=== PATIENT | male | born 2005 | race Caucasian/White ===

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

== ENCOUNTER 2025-03-11 19:46 | Emergency (ER) | payer MEDICAID, SELFPAY ==
--- OUTSIDE RECORDS SUMMARY | 2011-08-24 05:00 | XMS_ITS | Continuity of Care Document ---
Author Organization [facility] Address [address] [address] [place] [address] Phone Care Team Providers Care Liquor Tester Name Role Phone Hanane MONTALVO, Susan Unavailable [...] - Active Procedures Procedure Date Offic/outpt E&m [facility] G8447 Advance Directives Directive Yes / [...] [place] [facility], [address] [address], [place], [id number], [place] tel:[phone] Pediatric Clinic Assess nutrition (chief complaint) Failure To Thrive PediatricsFeeding Problem 1 Hanane hebert [address] [facility], [facility] [address], [place], [place], [id number] , [place]. tel: [phone] Referring Provider: Referral Self, USE FOR SELF [...] Crohn's Payers Payer name Insurance type Covered republican ID Darby olvera(s) [place] Medical Assistance [id number] Social History Type Description Quantity Date Captured [...]
--- OUTSIDE RECORDS SUMMARY | 2011-08-24 05:00 | XMS_ITS | Continuity of Care Document ---
Author Organization [facility] Address [address] [address] [place] [address] Phone Care Team Providers Care Communications Scientist Name Role Phone Hanane MONTALVO, Susan Unavailable [...] - Active Procedures Procedure Date Offic/outpt E&m [facility] G8447 Advance Directives Directive Yes / [...] [place] [facility], [address] [address], [place], [id number], [place] tel:[phone] Pediatric Clinic Assess nutrition (chief complaint) Failure To Thrive PediatricsFeeding Problem 1 Hanane hebert [address] [facility], [facility] [address], [place], [place], [id number] , [place]. tel: [phone] Referring Provider: Referral Self, USE FOR SELF [...] republican ID Darby olvera(s) [place] Medical [place] [id number] Social History Type Description Quantity Date Captured [...]
--- OUTSIDE RECORDS SUMMARY | 2025-03-11 19:48 | XMS_ITS | Encounter Summary ---
Author Organization [place] Address [address] [facility] [place] [address] Care Team Providers Care Wound Nurse Name Role Phone Merle Temple MD Primary Care Provider Unavailable Hannah Lares MD Unavailable Ashley Morocho MD Unavailable Alok Duenas MD Unavailable Leonel Ceja MD Unavailable [phone] Kingsley Gay MD Unavailable Charly Cruz MD Unavailable [phone] Syed Ireland MD Unavailable Merle Temple MD Unavailable Unava ilable Merle Temple MD Unavailable Unava ilable Black Rucker APRN FAMILY ADVOCATE Unavailable Yariel Lagos MD Unavailable Alice Green MD Primary Care Provider [phone] Merle Temple MD Unavailable Unava ilable [facility] Unavailabl e Reason for Visit * Reason Onset Date Comments Refill Request 08/13/2014 levETIRAcetam (K EPPRA) 100 MG/ML solution Encounter Details Date Type Department Care Team (Late st Contact Info) Description 08/08/2014 Refill [facility] [address] [place] [address] Merle Temple MD Refill Request (levETIRAcetam (KEPPRA) 100 MG/ML solution) Social History Tobacco Use Types Packs/Day Years Used Date Smoking Tobacco: Passive Smo ke Exposure - Never Smoker Smokeless Tobacco: Never Comments:In the vehicle Sex and Gender Information Value Date Recorded Sex Assigned at Not on file Legal Sex Male 4:40 AM STRAIGHT LINE PRESS SETTER Gender Identity Not on file Sexual Orientation Not on file documented as of this encounter Miscellaneous Notes * Telephone Encounter - Jaleesa Cam RN - 08/14/2014 1:47 PM CST Does not meet standard requirement for RN refill protocol. Refill request is for keppra Last OV:04/17/14 for preop Please refill if appropriate. Thanks! 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 Patient did not develop symptoms within 10 day infection window, is not considered mild or severe immunocompromised. Meets isolation discontinuation criteria as of 10/21/20. 10/11/2020 10/11/2020 10/29/2020 10:42 AM STRAIGHT LINE PRESS SETTER Recovered COVID Comment:Asymptomatic positive 10/11/20. Utilizing 75 day recovery window (vs 90) since exact onset is unknown. 10/11/2020 10/29/2020 12/24/2020 11:39 PM CDT documented as of this encounter Care Teams Wound Nurse Relationship Specialty Start Date End Date Merle Temple MD PCP - General Pediatrics 09/09/12 11/26/22 Merle Temple MD PCP - Assigned PCP 08/12/12 12/06/18 Alice Green MD [facility] [address] [place] [address] PCP - General Family Medicine 11/27/22 Hannah Lares MD [address] [address] Orthopedics 11/23/13 Ashley Morocho MD [address] [address] Physical Medicine & Rehabilitation, Pediatric 11/23/13 Alok Duenas MD [address] [address] Specialty Provider Neurological Surgery 11/23/13 Leonel Ceja MD [address] [address] Specialty Provider Neurology 11/23/13 Kingsley Gay MD [facility] [address] [facility] [place] [address] Specialty Provider Ophthalmology 11/23/13 Charly Cruz MD [address] [address] Consulting Physician Pediatrics 11/23/13 Syed Ireland MD [address] [address] Specialty Provider Pediatric Surgery 11/23/13 Merle Temple MD Assigned PCP 08/12/12 09/18/22 Black Rucker APRN FAMILY ADVOCATE [address] [place] [address] [address] [place] [address] Assigned Pediatric Specialist Provider 07/26/20 08/17/20 Yariel Lagos MD [address] [facility] [address] [place] [address] Assigned Pediatric Specialist Provider 08/18/20 05/15/22 Merle Temple MD Assigned PCP 11/28/22 10/27/23 [facility] [address] [place] [address] Assigned PCP 10/28/23 11/25/23 documented as of this encounter
--- OUTSIDE RECORDS SUMMARY | 2025-03-11 19:48 | XMS_ITS | Encounter Summary ---
Author Organization [place] Address [address] [facility] [place] [address] Care Team Providers Care Employment Educational Coord Name Role Phone Merle Temple MD Primary Care Provider Unavailable Hannah Lares MD Unavailable Ashley Morocho MD Unavailable [phone] Alok Duenas MD Unavailable [phone] Leonel Ceja MD Unavailable Kingsley Gay MD Unavailable Charly Cruz MD Unavailable Syed Ireland MD Unavailable Merle Temple MD Unavailable Unava Yariel Garcia MD Unavailable [place] Green MD Primary Care Provider Merle Temple MD Unavailable Unava ilaaliyah [facility] Unavailabl e Reason for Visit * Reason Comments Medication Refill Encounter Details Date Type Department Care Team (Late st Contact Info) Description 08/22/2020 [facility] [address] [place] [id number] Merle Temple MD Medication Refill Social History Tobacco Use Types Packs/Day Years Used Date Smoking Tobacco: Passive Smo ke Exposure - Never Smoker Smokeless Tobacco: Never Comments:In the vehicle Alcohol Use Standard Drinks/Week Comments No 0 (1 standard drink = 0.6 oz pur e alcohol) Sex and Gender Information Value Date Recorded Sex Assigned at Not on file Legal Sex Male 4:40 AM FOOD CONCESSION MANAGER Gender Identity Not on file Sexual Orientation Not on file COVID-19 Exposure Response Date Recorded In the last month, have you been in contact with someone who was confirmed or suspected to have Coronavirus / COVID-19? No / Unsure 08/14/2020 1:15 PM FOOD CONCESSION MANAGER documented as of this encounter Miscellaneous Notes * Telephone Encounter - Merle Temple MD - 08/22/2020 4:40 PM FOOD CONCESSION MANAGER Letter to be printed and faxed to [facility]. Fax CONCESSION MANAGER * Telephone Encounter - Shanique Allen RN - 08/22/2020 4:24 PM CST Message from pharmacy: To pharmacy: [facility] NEEDS A NEW RX THAT STATES THAT THIS IS TO BE USED NEEDED ONLY NOW. THEYDO NOT NEED ANY MORE MEDICATION AT THIS TIME HOWEVER THEY DO NEED UPDATED DIRECTIONS Shanique Allen RN CONCESSION MANAGER documented in this encounter Plan of Treatment Not on file documented as of this encounter Visit Diagnoses Diagnosis Perioral dermatitis Rosacea Acne vulgaris Other acne documented in this encounter Additional Health Concerns Infection Onset Date Last Indicated Resolved Time COVID-19 Comment:Asymptomatic positive 10/11/2020 (pre-procedure test). Patient did not develop symptoms within 10 day infection window, is not considered mild or severe immunocompromised. Meets isolation discontinuation criteria as of 10/21/20. 10/11/2020 10/11/2020 10/29/2020 10:42 AM FOOD CONCESSION MANAGER Recovered COVID Comment:Asymptomatic positive 10/11/20. Utilizing 75 day recovery window (vs 90) since exact onset is unknown. 10/11/2020 10/29/2020 12/24/2020 11:39 PM CDT documented as of this encounter Care Teams Employment Educational Coord Relationship Specialty Start Date End Date Merle Temple MD PCP - General Pediatrics 09/09/12 11/26/22 Alice Green MD [address] [address] PCP - General Family Medicine 11/27/22 Hannah Lares MD [address] [address] Orthopedics 11/23/13 Ashley Morocho MD [address] [address] Physical Medicine & Rehabilitation, Pediatric 11/23/13 Alok Duenas MD [address] [address] Specialty Provider Neurological Surgery 11/23/13 Leonel Ceja MD [address] [address] Specialty Provider Neurology 11/23/13 Kingsley Gay MD [facility] [address] [facility] [place] [address] Specialty Provider Ophthalmology 11/23/13 Charly Cruz MD [address] [address] Consulting Physician Pediatrics 11/23/13 Syed Ireland MD [address] [address] Specialty Provider Pediatric Surgery 11/23/13 Merle Temple MD Assigned PCP 08/12/12 09/18/22 Yariel Lagos MD [address] [address] Assigned Pediatric Specialist Provider 08/18/20 05/15/22 Merle Temple MD Assigned PCP 11/28/22 10/27/23 [facility] [address] [facility] [address] Assigned PCP 10/28/23 11/25/23 documented as of this encounter
--- OUTSIDE RECORDS SUMMARY | 2025-03-11 19:48 | XMS_ITS | Encounter Summary ---
Author Organization [place] Address [address] [facility] [address] Care Team Providers Care Stringer Up Soldering Machine Name Role Phone Merle Temple MD Primary Care Provider Unavailable Hannah Lares MD Unavailable Ashley Morocho MD Unavailable Alok Duenas MD Unavailable [phone] Leonel Ceja MD Unavailable Kingsley Gay MD Unavailable Charly Cruz MD Unavailable [phone] Syed Ireland MD Unavailable Merle Temple MD Unavailable Unava ilable Yariel Lagos MD Unavailable [phone] Alice Green MD Primary Care Provider Merle Temple MD Unavailable Unava ilable [facility] Unavailabl e Reason for Visit * Reason Onset Date Comments Medication Refill 12/12/2020 Sennosides (SE NNA) 8.8 MG/5ML LIQD Encounter Details Date Type Department Care Team (Late st Contact Info) Description 12/12/2020 Refill [facility] [address] [place] [address] Merle Temple MD Medication Refill ( Sennosides (SENNA) 8.8 MG/5ML LIQD) Social History Tobacco Use Types Packs/Day Years Used Date Smoking Tobacco: Passive Smo ke Exposure - Never Smoker Smokeless Tobacco: Never Comments:In the vehicle Alcohol Use Standard Drinks/Week Comments No 0 (1 standard drink = 0.6 oz pur e alcohol) Sex and Gender Information Value Date Recorded Sex Assigned at Not on file Legal Sex Male 4:40 AM BOX FOLDING MACHINE OPERATOR Gender Identity Not on file Sexual Orientation Not on file COVID-19 Exposure Response Date Recorded In the last month, have you been in contact with someone who was confirmed or suspected to have Coronavirus / COVID-19? No / Unsure 11/13/2020 1:10 PM BOX FOLDING MACHINE OPERATOR documented as of this encounter Miscellaneous Notes * Telephone Encounter - Barbara Bardales RN - 12/12/2020 11:59 AM CST Sennosides (SENNA) 8.8 MG/5ML LIQD Last Written Prescription Date: 09/08/2019 Last Fill Quantity: 236ml, # refills: 5 Last Office Visit: 10/23/2020 (VIRTUAL VISIT) Future Office visit: Routing refill request to provider for review/approval because: Drug not on the G, P or [facility] refill protocol or controlled substance. Barbara Bardales RN FOLDING MACHINE OPERATOR documented in this encounter Plan of Treatment Not on file documented as of this encounter Visit Diagnoses Diagnosis Chronic constipation Unspecified constipation documented in this encounter Additional Health Concerns Infection Onset Date Last Indicated Resolved Time Recovered COVID Comment:Asymptomatic positive 10/11/20. Utilizing 75 day recovery window (vs 90) since exact onset is unknown. 10/11/2020 10/29/2020 12/24/2020 11:39 PM CDT documented as of this encounter Care Teams Stringer Up Soldering Machine Relationship Specialty Start Date End Date Merle Temple MD PCP - General Pediatrics 09/09/12 11/26/22 Alice Green MD [address] [address] PCP - General Family Medicine 11/27/22 Hannah Lares MD [address] [address] Orthopedics 11/23/13 Ashley Morocho MD [address] [address] Physical Medicine & Rehabilitation, Pediatric 11/23/13 Alok Duenas MD [address] [address] Specialty Provider Neurological Surgery 11/23/13 Leonel Ceja MD [address] [address] Specialty Provider Neurology 11/23/13 Kingsley Gay MD [facility] [address] [address] Specialty Provider Ophthalmology 11/23/13 Charly Cruz MD [address] [address] Consulting Physician Pediatrics 11/23/13 Syed Ireland MD [address] [address] Specialty Provider Pediatric Surgery 11/23/13 Merle Temple MD Assigned PCP 08/12/12 09/18/22 Yariel Lagos MD [address] [place] [address] Assigned Pediatric Specialist Provider 08/18/20 05/15/22 Merle Temple MD Assigned PCP 11/28/22 10/27/23 [facility] [address] [place] [id number] Assigned PCP 10/28/23 11/25/23 documented as of this encounter
--- OUTSIDE RECORDS SUMMARY | 2025-03-11 19:48 | XMS_ITS | Encounter Summary ---
Author Organization [place] Address [address] [facility] [place] [address] Care Team Providers Care Webbing Weaver Name Role Phone Merle Temple MD Primary Care Provider Unavailable Hannah Lares MD Unavailable Ashley Morocho MD Unavailable [phone] Alok Duenas MD Unavailable [phone] Leonel Ceja MD Unavailable Kingsley Gay MD Unavailable [phone] Charly Cruz MD Unavailable [phone] Syed Ireland MD Unavailable [phone] Merle Temple MD Unavailable Unava Yariel Garcia MD Unavailable Alice Green MD Primary Care Provider [phone] Merle Temple MD Unavailable Unava ilaaliyah [facility] Unavailabl e Reason for Visit * Reason Comments Medication Refill Encounter Details Date Type Department Care Team (Late st Contact Info) Description [facility] [address] [place] [phone] Merle Temple MD Medication Refill Social History Tobacco Use Types Packs/Day Years Used Date Smoking Tobacco: Passive Smo ke Exposure - Never Smoker Smokeless Tobacco: Never Comments:In the vehicle Alcohol Use Standard Drinks/Week Comments No 0 (1 standard drink = 0.6 oz pur e alcohol) Sex and Gender Information Value Date Recorded Sex Assigned at Not on file Legal Sex Male 4:40 AM DOCTOR OF PODIATRIC MEDICINE Gender Identity Not on file Sexual Orientation Not on file COVID-19 Exposure Response Date Recorded In the last month, have you been in contact with someone who was confirmed or suspected to have Coronavirus / COVID-19? No / Unsure 09/23/2020 10:24 AM DOCTOR OF PODIATRIC MEDICINE documented as of this encounter Miscellaneous Notes * Telephone Encounter - Caitlin Menjivar RN - 09/26/2020 9:45 AM CST Prescription approved per [facility] protocol. Caitlin Menjivar RN on 09/26/2020 at 9:44 AM OR OF PODIATRIC MEDICINE documented in this encounter Plan of Treatment [...] of 10/21/20. 10/11/2020 10/11/2020 10/29/2020 10:42 AM DOCTOR OF PODIATRIC MEDICINE Recovered COVID Comment:Asymptomatic positive 10/11/20. Utilizing 75 day recovery window (vs 90) since exact onset is unknown. 10/11/2020 10/29/2020 12/24/2020 11:39 PM CDT documented as of this encounter Care Teams Webbing Weaver Relationship Specialty Start Date End Date Merle Temple MD PCP - General Pediatrics 09/09/12 11/26/22 Alice Green MD [address] [place] [address] PCP - General Family Medicine 11/27/22 Hannah Lares MD [address] [address] Orthopedics 11/23/13 Ashley Morocho MD [address] [address] Physical Medicine & Rehabilitation, Pediatric 11/23/13 Alok Duenas MD [address] [address] Specialty Provider Neurological Surgery 11/23/13 Leonel Ceja MD [address] [address] Specialty Provider Neurology 11/23/13 Kingsley Gay MD [facility] [address] [address] Specialty Provider Ophthalmology 11/23/13 Charly Cruz MD [address] [address] Consulting Physician Pediatrics 11/23/13 Syed Ireland MD [address] [address] Specialty Provider Pediatric Surgery 11/23/13 Merle Temple MD Assigned PCP 08/12/12 09/18/22 Yariel Lagos MD [address] [address] Assigned Pediatric Specialist Provider 08/18/20 05/15/22 Merle Temple MD Assigned PCP 11/28/22 10/27/23 [facility] [address] [place] [address] Assigned PCP 10/28/23 11/25/23 documented as of this encounter
--- OUTSIDE RECORDS SUMMARY | 2025-03-11 19:48 | XMS_ITS | Patient Health Record ---
Author Organization [facility] Address [address] [place] [address] Care Team Providers Care Gantry Rigger Name Role Phone Merle Dominguez MD Primary Care Provider Reason For Referral No Information Problems Problem Type SNOMED Code ICD Code Onset Dates Problem Status W/U Status Risk Notes Problem [id number] Neurogenic bladder (N31.9) Active confirmed Plan Of Treatment No Information
--- OUTSIDE RECORDS SUMMARY | 2025-03-11 19:48 | XMS_ITS | Clinical Summary ---
Author Organization [employer] [facility] Address [facility] [place] [address] Care Team Providers Care Financial Planner Name Role Phone Alice Green MD Primary Care Provider Allergies Active Allergy Reactions Criticality Noted Date Comments Latex *Unknown 10/15/2015 No allergy per [facility] staff - Precaution not allergy Medications levETIRAcetam (KEPPRA) 100 mg/mL oral solution Administer 900 mg via G-tube 3 times daily. 021 Active Vitamin B-6 100 mg tablet Take 100 mg by mouth once daily. Active zonisamide (ZONEGRAN) 100 mg capsule Administer 300 mg via G-tube 2 times daily. 021 Active cloBAZam (ONFI) 10 mg 10 mg 2 times daily. 021 Active benzoyl peroxide 10% (BENZAC-W WASH) 10 % external wash Apply 2 times daily as needed for breakouts. 0 022 Active wheelchairIndic ations:Spastic quadriplegic cerebral palsy (HC),Seizure disorder (HC) Wheelchair: Sig: Custom wheelchair fitted to patient. Length of need: 99 months Class: Print 1 Each 023 Active calcium carbonate 1250 mg/5 mL suspension (elemental Ca = 500 mg/5 mL)Indications: Neurogenic bowel ADMINISTER 5ML VIA G-TUBE EVERY EVENING 473 mL 1 023 Active diazePAM CONCENTRATE (DIAZEPAM INTENSOL) 5 mg/mL solutionIndicat ions:Seizure disorder (HC) Take 1 mL (5 mg) by mouth once daily if needed for Seizures. Give 1 ml as needed for seizure activity lasting > 10 min 30 mL 024 Active tube feedingIndicati ons:History of gastrostomy Length of need: Lifetime. Tube feeding formula: Nutren 1.0 with fiber, 2.5 cartons daily -2.5 cartons mixed with 1 carton water and run through a pump @ 180 ml/hr from ~7pm-12am -Okay to substitute Promote 1.0 with fiber, Jevity 1.0, Ensure Original 1 Each 12 024 Active multivitamin with folic acid 0.4 mg (Tab-A-Guillaume)Ind ications:Neurog enic bowel CRUSH AND GIVE 1 TABLET ONCE DAILY VIA G-TUBE 90 Tablet 2 024 Active polyethylene glycoL (Gavilax) 17 gram/scoop powderIndicatio ns:Encounter for routine child health examination without abnormal findings MIX 17GMS IN 300CC WATER TO BE GIVEN DAILY PER G-TUBE ONCE DAILY 1530 g 2 024 Active bisacodyL (OneLAX bisacodyL) 10 mg suppositoryIndi cations:Chronic constipation INSERT 1 SUPPOSITORY (10 MG) RECTALLY DAILY NEEDED FOR CONSTIPATION (NO STOOL FOR 3 DAYS) 10 Suppository 3 024 Active clindamycin (CLEOCIN-T) 1 % lotionIndicatio ns:Acne vulgaris APPLY TOPICALLY TO AFFECTED AREA(S) TWO TIMES DAILY. 60 mL 1 025 Active tube feedingIndicati ons:History of gastrostomy Length of need: Lifetime Tube feeding formula: Fibersource HN 1.2 (2 cartons/day) -2 cartons mixed with 1 carton water and run through the pump @ 150 ml/hr from ~7pm-12am -300 ml water flushes TID 1 Each 025 Active sennosides (Senna) 8.8 mg/5 mL syrupIndication s:Bowel and bladder incontinence GIVE 10ML AT BEDTIME VIA G-TUBE IF NO BOWEL MOVEMENT IN 48 HOURS 237 mL 3 025 Active salicylic acid (Compound W) 17 % gelIndications: Wart on thumb Apply topically to affected area(s) once daily. 7.5 g 025 Active loratadine 1 mg/mL liquidIndicatio ns:Seasonal allergic rhinitis due to pollen Take 10 mL (10 mg) by mouth once daily. 300 mL 2 025 Active calcium carbonate (Antacid (calcium carbonate)) 200 mg calcium (500 mg) chewable tabletIndicatio ns:Quadriplegia (HC) CRUSH AND DISSOLVE 1 TABLET IN WATER AND ADMINISTER VIA GASTRIC-TUBE AT BEDTIME 90 Tablet 025 Active Diaper,Brief, Adult,Disposabl eIndications:Ur inary incontinence, unspecified type FOR HOME USE PATIENT USES 6-8 PER DAY 720 Each 3 025 Active Diaper,Brief, Adult,Disposabl eIndications:Ur inary incontinence, unspecified type FOR HOME USE PATIENT USES 6-8 PER DAY 240 Each 024 2024 Discontinued calcium carbonate (Antacid, calcium carbonate,) 200 mg calcium (500 mg) chewable tabletIndicatio ns:Quadriplegia (HC) CRUSH AND DISSOLVE 1 TABLET IN WATER AND ADMINISTER VIA GASTRIC-TUBE AT BEDTIME 90 Tablet 3 024 2024 Discontinued Active Problems Problem Noted Date Diagnosed Date Quadriplegia 07/27/2023 Neurogenic bowel 09/17/2022 S/P CLIENT DELIVERY MANAGER shunt 07/23/2021 Ptosis, right eyelid 07/23/2021 History of gastrostomy 07/09/2021 Wears eyeglasses 07/09/2021 Premature 07/09/2021 Calculus of gallbladder with out cholecystitis without obstruction 08/05/2020 Overview (07/09/2021): 05/23 Incidental finding on renal US 10/29/20 removed gall bladder Neurogenic bladder 01/27/2019 Overview (07/09/2021): 12/26/18 Urology- US showed 2 mm stone with debris in bladder Flomax started 06/11/20 Normal renal US; bladder wall irregularity; incidental gall stones noted Neuromuscular scoliosis of thoracolumbar region 07/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 Parker- more positional 01/20- stable- f/u 1 yr; 07/22 Xray 9 degrees; 04/22- T12 Kyphosis- 60 degrees no big change 11/15/20 Xray 15 degrees 03/26/21 Xray- 16 degress lower thoracolumbar convex curve left; 90 degrees kyphosis; Dr. 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 Morocho manages spasticity; s/p Botox and phenol injections- last seen 04/02/17- f/u one year Seen by Dr. Duenas, neurosurgeon 06/16 & 07/16; Baclofen Pump 04/16; 09/17/20 Dr. Duenas recommending elective change in pump 02/16- Increase baclofen pump dose- order for behavioral therapy and more intensive PT/OT 04/20, 05/22 Dr. Morocho- no changes- f/u 12 mos; Dr. Lares- stable; visit 12/26/20 AFO adjustment Speech delay 05/04/2016 Overview (07/09/2021): Uses some sign language and understands simple commands. Bowel and bladder incontinence 03/30/2016 Overview (07/09/2021): 12/20 Xray- fecal filled descending colon, distal colon and rectum Kidney US- normal; Small bladder calculus with debris in bladder- Flomax started 06/11/20 Renal US normal, bladder wall irregularity noted; KUB- moderate stool 11/15/20 Renal US normal, bladder unchanged Slow transit constipation 02/27/2016 Overview (07/09/2021): 12/20 Xray Gilllete- stool filled descending, distal colon and rectum- recommend cleanout 06/23 KUB- moderate stool in colon Behavior problem 12/13/2014 History of UTI 06/20/2014 Overview (07/09/2021): Hospitalized 06/02/14- increase irritability (not sure if from Valium withdrawal or from urinary tract infection); Febrile urinary tract infection 12/15 12/19 gross hematuria; Urology eval- Dr. Pitt- normal bladder and renal US. Fecal bolus noted- increase in Miralax Renal US- normal kidneys, bladder wall thickened 07/21 Normal renal/ bladder US but right kidney larger than left; 12/20- kidneys ok; debris in bladder with stone- added Flomax 08/22 US- Renal stone right lower pole kidney 3 mm; mild left pelviectasis Presence of intrathecal baclofen pump 05/02/2014 Overview (07/09/2021): Placed 04/23/14; Medtronic SynchroMed II pump. Serial # [id number], Model # 8637- 20. 20 ml. Filled with 500mcg/ml, catheter volume 0.187 ml. 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 Tate; Head [facility] & [facility]- stable 12/14; Dr. Duenas 07/16- CT Scan @ [facility]: changes with PVL. Marked dilatation 4th ventricle; 2nd shunt into 4th ventricle- connected to exisiting shunt 11/10/13; CT scan 01/15-enlargement lateral ventricles, 4th ventricle stable in size; repeat 02/06/14 stable- change pressure to 40; Repeat 03/06/14- ventricles same; 4th vent catheter tip in brainstem 07/[address]- no significant change. Neurosurgery Dr. Duenas Seizure disorder 09/08/2012 Overview (07/09/2021): Started 08/12- partial complex, new type recently. Cristy; Dr. Ceja- last visit 12/17- f/u 1 yr; Diastat 10 mg gel kit -give 5 mg for seizure > 5 minutes 06/18 EEG- abnormal; diffuse cortical dysfunction and at risk of focal seizures. Seizure 10/02/16 at mom's & 10/13/16 at school- dose increased to 300 TID 10/20 02/18 last visit neuro; 07/21 increase Keppra due to recent increase in seizures; 08/22/18- Keppra 500 mg TID- f/u 6 mos 11/02/18 Admission for EEG monitoring- continual subclinical seizures but no spells captured that school had observed; Increased Keppra to 800 TID 12/20 Zonisamide added- 03/01/19 dose increase 400 mg daily 04/27/19- 04/28/19 Admit after transfer from [facility] with increase, prolonged seizure- febrile; neurosurgery consult 08/16/19 Valproate- did not tolerate well 11/10/19 Clobazam started with Keppra and Zonisamide 07/29/20 Stable on Clobazam, Keppra and Zonisamide 04/28/21 Neurology- no change in plan well-controlled since Onfi began in October 2020. 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 Gay; Seen 08/19 Ptosis right eye lid 09/21 Dr. 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 Ireland; changed to Barry-rodriguez button 18 Fr, 1.7 cm 01/16- increase to 3 cans Pediasure at night (Dr. Mejia) 08/18- decrease to 2.5 cans 02/16- continue 2 cans; 02/17- decrease 1 can 12/06/19 Dr. Mejia- continue GT feedings same 06/11/20 Decrease feedings by 1.5 cans 03/13/21 Switch to Promote 2 cartons daily with 5 ml added calcium Developmental delay in child 09/08/2012 Encounters Date Type Department Care Team Description 03/09/2025 10:00 AM CDT Office Visit [facility] [address] [place] [address] Alice Green MD [facility] 03/09/2025 Telephone [facility] [address] [place] [address] Alice Green MD 03/09/2025 Travel 03/07/[address] [address] Alice Green MD Refill Request (Diaper, Brief) 02/27/[address] [address] Alice Green MD Refill Request (Antacid (Calcium Carbonate)) 01/01/2025 Medical Messaging [facility] [address] [place] [address] Alice Green MD Neurology Consult 12/26/2024 1:10 PM CDT Office Visit [facility] [address] [place] [address] Bettye Ricketts PA Allergies (Runny nose, itchy eyes and slight cough. Possible start a Allergy medication. ); Derm Problem (Left thumb wart.) 12/26/2024 Travel from Last 3 Months Immunizations Immunization Administration Dates Next Due COVID-19 vaccine (PlayPhone NTech 30mcg/0.3mL) PF, MDV 06/02/2021 DTaP-HIB (TriHIBIT) 2005 [id number] (Pediarix) 01/04/2006,2005,1 DTaP-IPV (Kinrix) 05/29/2010 HIB PRP-T (ActHIB,Hiberix) 2005,2005 Hepatitis A (Peds) 06/10/2006 Hepatitis A (Peds),Unspecified 02/13/2014,2005 Hepatitis A, Unspecified 02/13/2014 Influenza Virus, Unspecified 06/17/2020, 07/12/2019,07/25/2018,06/24,08/19/2015,08/21/2014,08/21/2014 ,07/04/2013,07/04/2013,09/01/2011,08/05,08/03/2011,08/03/2011 Influenza, IIV3 (Age >=3 years) 07/27/2024 Influenza, IIV4 07/26/2023,,06/17/2020,07/12,07/25/2018,06/24/2016,08/19/2015 MENINGOCOCCAL VACCINE 2 VIAL 2MO-55YO (MENVEO) 10/02/2022 MMR 05/29/2010,06/01/2006 MMRV 05/29/2010,06/01/2006 Meningococcal Vaccine (Menactra) 02/26/2017 Pneumococcal conj 7-Valent (Prevnar 7) 6,2005,2005 Tdap 02/26/2017 Varicella Vaccine 05/29/2010,06/01/2006 Family History Medical History Relation Name Comments No Known Problems Father No Known Problems Mother Relation Name Status Comments Father Alive Mother Alive Social History Tobacco Use Types Packs/Day Years Used Date Smoking Tobacco: Never Smokeless Tobacco: Never Tobacco Cessation:Counseling Given: Yes Alcohol Use Standard Drinks/Week Comments Never 0 (1 standard drink = 0.6 oz pur e alcohol) PHQ-2 Answer Date Recorded PHQ-2 TOTAL SCORE 0 07/24/2022 Social Connections Answer Date Recorded Do you often feel lonely or isolated from those around you? 0 07/28/2024 Financial Resource Strain Answer Date R ecorded Difficulty of Paying Living Expenses 3 07/28/2024 Difficulty of Paying Living Expenses Not on file 07/28/2024 Food Insecurity Answer Date Recorded Do you worry your food will run out before you are able to buy more? 1 07/28/2024 Transportation Needs Answer Date Record ed Does lack of transportation keep you from medica l appointments? 1 07/28/2024 Does lack of transportation keep you from work, meetings or getting things that you need? 1 07/28/2024 Housing Stability Answer Date Recorded What is your housing situation today? 1 07/28/2024 Utilities Answer Date Recorded Do you have trouble paying f or utilities (for example, heat, electricity, water, phone)? 1 07/28/2024 Sex and Gender Information Value Date Recorded Sex Assigned at Not on file Legal Sex Male 3:49 PM LEAD RECOVERER Gender Identity Not on file Sexual Orientation Not on file Obstetrics History Last Filed Vital Signs Vital Sign Reading Time Taken Comments Blood Pressure 126/74 12/26/2024 1:20 PM CDT Pulse 83 03/09/2025 10:09 AM CDT Temperature 36.6 C (97.8 F) 08/25/2023 3:17 PM LEAD RECOVERER Respiratory Rate 17 07/28/2024 10:45 AM CDT Oxygen Saturation 98% 03/09/2025 10:09 AM CDT Inhaled Oxygen Concentration - - Weight 45.4 kg (100 lb) 03/09/2025 10:09 AM CDT reported Height 152.4 cm (5') 07/24/2022 4:03 PM CDT Body Mass Index - - Plan of Treatment Health Maintenance Due Date Last Done Comments HIV for age 15-65 2020 HPV series for age 9-26 (1 - Male 3-dose series) 2020 Hepatitis C screening for age 18-79 2023 Depression screening for age 12+ 07/24/2023 07/24/2022 COVID-19 vaccine series (2 - season) 2024 06/02/2021 Well Child Check for age 3-20 07/28/2025 07/28/2024, 07/27/2023, 07/24/2022, Additional history exists Tetanus booster 02/26/2027 02/26/2017 Hepatitis B series for 19+ Completed 01/04, 2005, 2005 Pneumococcal series for age 6-49 Aged Out 01/04/2006, 2005, 2005 No longer eligible based on patient's age to complete this topic Tdap Completed 02/26/2017 Meningococcal series for age 11-21 Completed 10/02/2022, 02/26/2017 Influenza Vaccine Completed 07/27/2024, , 07/24/2022, Additional history exists Insurance MEDICAID MEDICAID Care Teams Financial Planner Relationship Specialty Start Date End Date Alice Green MD [address] [place] [address] PCP - General Family Practice 07/23/21
--- OUTSIDE RECORDS SUMMARY | 2025-03-11 19:48 | XMS_ITS | Encounter Summary ---
Author Organization [facility] Address [address] [facility] [place] [address] Care Team Providers Care Jute Bag Cutting Machine Operator Name Role Phone Merle Temple MD Primary Care Provider Unavailable Hannah Lares MD Unavailable [phone] Ashley Morocho MD Unavailable Alok Duenas MD Unavailable [phone] Leonel Ceja MD Unavailable [phone] Kingsley Gay MD Unavailable [phone] Charly Cruz MD Unavailable [phone] Syed Ireland MD Unavailable [phone] Merle Temple MD Unavailable Unava ilAlice Trammell MD Primary Care Provider Merle Temple MD Unavailable Unava ilable [facility] Unavailabl e Reason for Visit * Reason Comments Medication Refill Encounter Details Date Type Department Care Team (Late st Contact Info) Description 06/22/2022 Refill [facility] [address] [place] [address] Merle Temple MD Medication Refill Social History Tobacco Use Types Packs/Day Years Used Date Smoking Tobacco: Passive Smo ke Exposure - Never Smoker Smokeless Tobacco: Never Comments:In the vehicle Alcohol Use Standard Drinks/Week Comments No 0 (1 standard drink = 0.6 oz pur e alcohol) Sex and Gender Information Value Date Recorded Sex Assigned at Not on file Legal Sex Male 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 Gender Identity Not on file Sexual Orientation Not on file documented as of this encounter Miscellaneous Notes * Telephone Encounter - Carrie Butt RN - 06/22/2022 10:34 AM CDT Routing refill request to provider for review/approval because: Drug not on the [facility] refill protocol Carrie Butt RN on 06/22/2022 at 10:34 AM documented in this encounter Plan of Treatment Not on file documented as of this encounter Visit Diagnoses Diagnosis Chronic constipation Unspecified constipation documented in this encounter Care Teams Jute Bag Cutting Machine Operator Relationship Specialty Start Date End Date Merle Temple MD PCP - General Pediatrics 09/09/12 11/26/22 Alice Green MD [address] [address] PCP - General Family Medicine 11/27/22 Hannah Lares MD [address] [address] Orthopedics 11/23/13 Ashley Morocho MD [address] [address] Physical Medicine & Rehabilitation, Pediatric 11/23/13 Alok Duenas MD [address] [place] [address] Specialty Provider Neurological Surgery 11/23/13 Leonel Ceja MD [address] [address] Specialty Provider Neurology 11/23/13 Kingsley Gay MD [facility] [address] [address] Specialty Provider Ophthalmology 11/23/13 Charly Cruz MD [address] [address] Consulting Physician Pediatrics 11/23/13 Syed Ireland MD [address] [address] Specialty Provider Pediatric Surgery 11/23/13 Merle Temple MD Assigned PCP 08/12/12 09/18/22 Merle Temple MD Assigned PCP 11/28/22 10/27/23 [facility] [address] [facility] [facility] [place] [address] Assigned PCP 10/28/23 11/25/23 documented as of this encounter
--- OUTSIDE RECORDS SUMMARY | 2025-03-11 19:48 | XMS_ITS | Clinical Summary ---
Author Organization [facility] Address [address] [facility] [place] [address] Care Team Providers Care Hand Cementer Name Role Phone Hannah Lares MD Unavailable Ashley Morocho MD Unavailable [phone] Alok Duenas MD Unavailable Leonel Ceja MD Unavailable Kingsley Gay MD Unavailable Charly Cruz MD Unavailable [phone] Syed Ireland MD Unavailable Alice Green MD Primary Care Provider Allergies Active Allergy Reactions Criticality Noted Date Comments Latex 10/15/2015 No allergy per [facility] - Precaution not allergy Medications pyridoxine (VITAMIN B-6) 100 MG tablet 1 tablet (100 mg) by Per G Tube route daily 0 02/27/20 17 Active order for DMEIndications:Gas trostomy tube dependent (H) Equipment being ordered: 2 X 2 inc gauze (pre-slit) for use around GTube/ Barry-rodriguze site as needed for skin irritation fax a written order to [facility] at [phone]. 1 Box 11 11/26/19 18 Active glycopyrrolate (ROBINUL) 1 MG tablet TAKE ONE TABLET PER G TUBE THREE TIMES A DAY 5 11/28/19 19 Active tamsulosin (FLOMAX) 0.4 MG capsule Take 0.4 mg by mouth daily 11 01/26/20 19 Active Sodium Phosphates (ENEMA) 7-19 GM/118ML ENEM USE RECTALLY ONCE NEEDED FOR CONSTIPATION 4 12/27/19 19 Active levETIRAcetam (KEPPRA) 100 MG/ML solutionIndication s:Seizure disorder (H) 9 ml at 7 AM, 9 ml at 1 pm, 9 ml at 7 pm 250 mL 03/09/20 19 Active Nutritional Supplements (PEDIASURE 1.0 MERCEDES/FIBER) LIQDIndications:Ga strostomy tube dependent (H) 2 Cans by Gastronomy tube route At Bedtime Drip feed at night 7200 mL 11 03/09/20 19 Active bisacodyl (BISCOLAX) 10 MG suppositoryIndicat ions:Chronic constipation Place 1 suppository (10 mg) rectally daily as needed for constipation (no stool for 3 days) 10 suppository 6 05/31/20 20 Active clobazam (ONFI) 10 MG tablet 05/27/20 20 Active diazepam (VALIUM) 5 MG/ML (HIGH CONC) solutionIndication s:Seizure disorder (H) Take 1 mL (5 mg) by mouth every 8 hours as needed for seizures 30 mL 08/14/20 20 Active zonisamide (ZONEGRAN) 100 MG capsuleIndications :Seizure disorder (H) 300 mg in am and 300 mg in pm . 90 capsule 1 08/14/20 20 Active Additional Information Patient taking differently: 300 mg at 7 am and 300 mg at 7 pm ., Reported on 10/25/2020 clindamycin (CLEOCIN T) 1 % external lotionIndications: Perioral dermatitis,Acne vulgaris Apply topically 2 times daily as needed 60 mL 08/23/20 20 Active Pediatric Multivitamins-Iron (ANIMAL SHAPES/IRON) 18 MG CHEW 08/16/20 20 Active acetaminophen (TYLENOL) 32 mg/mL liquidIndications: S/P laparoscopic cholecystectomy 18.5 mLs (592 mg) by Oral or G tube route every 6 hours as needed for fever or mild pain 355 mL 10/29/19 Active ibuprofen (ADVIL/MOTRIN) 100 MG/5ML suspensionIndicati ons:Osteoarthritis 20 mLs (400 mg) by Oral or G tube route every 6 hours as needed for fever or moderate pain 273 mL 10/29/19 Active Additional Information Patient not taking.Reported on 11/13/2020 oxyCODONE (ROXICODONE) 5 MG/5ML solutionIndication s:S/P laparoscopic cholecystectomy 2.5-5 mLs (2.5-5 mg) by Per G Tube route every 4 hours as needed for moderate to severe pain 35 mL 10/29/19 Active Additional Information Patient not taking.Reported on 11/13/2020 Multiple Vitamins-Minerals (TAB-A-BRIEN) TABS daily 10/30/19 Active Sennosides (SENNA) 8.8 MG/5ML LIQDIndications:Ch ronic constipation GIVE 10ML AT BEDTIME VIA G-TUBE IF NO BOWEL MOVEMENT IN 48 HOURS 237 mL 12/13/19 Active Incontinence Supply Disposable (DISPOSABLE LINERS) MISCIndications:Sp astic quadriplegic cerebral palsy (H),Bowel and bladder incontinence Brief liners for incontinence to be used with disposable briefs 6-8 times a day as needed 240 each 02/07/20 Active Incontinence Supply Disposable (A + D PERSONAL CARE WIPES) MISCIndications:Babar wel and bladder incontinence Any kind of personal care wipes with max allowed to use prn. 3 each 02/08/20 Active Incontinence Supply Disposable MISCIndications:Babar wel and bladder incontinence PATIENT USES 6-8 PER DAY 240 each 08/15/20 Active GAVILAX 17 GM/SCOOP powderIndications: Chronic constipation MIX 17GMS IN 300CC WATER TO BE GIVEN DAILY PER G-TUBE ONCE DAILY 510 g 09/03/20 Active Active Problems Problem Noted Date Diagnosed Date Calculus of gallbladder with out cholecystitis without obstruction 08/05/2020 Overview (10/30/2020): 05/23 Incidental finding on renal US 10/29/20 removed gall bladder Neurogenic bladder 01/27/2019 Overview (06/14/2020): 12/26/18 Urology- US showed 2 mm stone with debris in bladder Flomax started 06/11/20 Normal renal US; bladder wall irregularity; incidental gall stones noted Neuromuscular scoliosis of thoracolumbar region 07/22/2018 Overview (10/10/2021): 07/21 Xray 15 degrees convex left from T1-L1 and 17 degrees convex right from L1-S1; Dr. Parker- more positional 01/20- stable- f/u 1 yr; 07/22 Xray 9 degrees; 04/22- T12 Kyphosis- 60 degrees no big change 11/15/20 Xray 15 degrees 03/26/21 Xray- 16 degress lower thoracolumbar convex curve left; 90 degrees kyphosis; Dr. 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 Morocho manages spasticity; s/p Botox and phenol injections- last seen 04/02/17- f/u one year Seen by Dr. Duenas, neurosurgeon 06/16 & 07/16; Baclofen Pump 04/16; 09/17/20 Dr. Duensa recommending elective change in pump 02/16- Increase baclofen pump dose- order for behavioral therapy and more intensive PT/OT 04/20, 05/22 Dr. Morocho- no changes- f/u 12 mos; Dr. Lares- stable; visit 12/26/20 AFO adjustment Ventriculo-peritoneal shunt status 02/26/2017 Overview (11/22/2020): 04/27/19 Shunt- CT head stable; shunt series- intact tubing 08/08/19 CT- stable- partial opacification sinuses; neurosurgery- f/u one year 11/15/20 CT- increase ventricle size Speech delay 05/04/2016 Bowel and bladder incontinence 03/30/2016 Overview (09/26/2021): 12/20 Xray- fecal filled descending colon, distal colon and rectum Kidney US- normal; Small bladder calculus with debris in bladder- Flomax started 06/11/20 Renal US normal, bladder wall irregularity noted; KUB- moderate stool 11/15/20 Renal US normal, bladder unchanged 09/22/21 Renal US- stable nonshadowing echogenic foci right lower pole- non-obstructing- recommend nephrology referral due to persistent stone/ risks; bladder well emptied- keep with Flomax for now. Slow transit constipation 02/27/2016 Overview (06/14/2020): 12/20 Xray [facility]- stool filled descending, distal colon and rectum- recommend cleanout 06/23 KUB- moderate stool in colon Behavior problem 12/13/2014 History of UTI 06/20/2014 Overview (08/18/2019): Hospitalized 06/02/14- increase irritability (not sure if [...] Presence of intrathecal baclofen pump 05/02/2014 Overview (08/03/2014): Placed 04/23/14; Lush [employer]ologiestronic SynchroMed II pump. Serial # [id number], Model # 8637- 20. 20 ml. Filled with 500mcg/ml, catheter volume 0.187 ml. 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 Tate; Head [facility] & [facility]- stable 12/14; Dr. Duenas 07/16- CT Scan @ [facility]: changes with PVL. Marked dilatation 4th ventricle; 2nd shunt into 4th ventricle- connected to exisiting shunt 11/10/13; CT scan 01/15-enlargement lateral ventricles, 4th ventricle stable in size; repeat 02/06/14 stable- change pressure to 40; Repeat 03/06/14- ventricles same; 4th vent catheter tip in brainstem 07/[address]- no significant change. Neurosurgery Dr. Duenas [facility] (status) 02/13/2013 Overview (09/25/2020): 01/14- [facility] in ; Fax 08/23- changing guardian from mother to father Premature -24 weeks gestation 09/08/2012 Overview (09/08/2012): BW 1# 9 oz Intraventricular hemorrhage, grade IV 09/08/2012 Overview (02/18/2014): 05/08- placement of right frontal Rickham reservoir Seizure disorder 09/08/2012 Overview (2021): Started 08/12- partial complex, new type recently. Keppra; Dr. Ceja- last visit 12/17- f/u 1 [...] daily 04/27/19- 04/28/19 Admit after transfer from [facility] with increase, prolonged seizure- febrile; neurosurgery consult 08/16/19 Valproate- did not tolerate well 11/10/19 Clobazam started with Keppra and Zonisamide 07/29/20 Stable on Clobazam, Keppra and Zonisamide 04/28/21 Neurology- no change in plan Gastrostomy tube/ Barry-rodriguez Button 09/08/2012 Overview (03/14/2021): 12/13 Dr. Ireland; changed to Barry-rodriguez button 18 Fr, 1.7 cm 01/16- increase to 3 cans Pediasure at night (Dr. Mejia) 08/18- decrease to 2.5 cans 02/16- continue 2 cans; 02/17- decrease 1 can 12/06/19 Dr. Mejia- continue GT feedings same 06/11/20 Decrease feedings by 1.5 cans 03/13/21 Switch to Promote 2 cartons daily with 5 ml added calcium Hemangioma of eyelid 09/08/2012 Overview (09/12/2019): Right- led to vision problems; patches/ eyeglasses- Dr. Gay; Seen 08/19 Ptosis right eye lid 09/21 Dr. Gay- Astigmatism right >left, monocular Esotropia right/ Ambyopia right; hyperopia- f/u one year Hip instability 09/08/2012 Overview (05/10/2020): Dr. Lares; [facility]- Dr. Cruz 07/16- normal labs; worsening subluxation right femoral head seen on shunt series 12/14. Dr. Lares saw 06/16- hip dislocated- recommend extensive surgery; Inpatient consult 11/12/13. 10/09/14: single event multilevel surgery: Bilateral adductor lengthenings, bilateral adductor botox injections, bilateral proximal femoral varus shortening/ derotation osteotomy, bilateral medial hamstring botox injections, bilateral hip arthrograms; Dr. Lares 01/16-f/u healing well; return to all activities 04/18- xray hips in good position; Back no scoliosis- Ana Ashley 10/20 Dr. Fowler- xrays hips ok; 05/20 Dr. Lares- hip xrays ok- f/u 6 mos. Thinks back ok. 09/16/17- hip xray ok; tight- increase Baclofen dose and recommend injections 03/21-Dr. Lares- Positional scoliosis- recheck 4 mos; 07/21 xray ok; 07/22 xray ok; 05/23 Virtual visit - f/u one year Developmental delay in child 09/08/2012 Resolved Problems Problem Noted Date Diagnosed Date Resolved Date Gall stones 06/28/2020 09/23/2020 Overview (06/28/2020): 05/23 Incidental finding on renal US Bladder stone 01/27/2019 03/09/2019 Overview (03/09/2019): 12/26/18 Urology- US showed 2 mm stone with debris in bladder; had resolved when went to remove with cystoscopy Underweight 09/08/2012 08/08/2013 Overview (09/08/2012): GT tube- night time feedings Cerebral palsy 09/07/2012 02/26/2017 Attention to gastrostomy 04/20/201203/2012 Immunizations Immunization Administration Dates Next Due COVID-19 MONOVALENT 12+ (Pfizer) 06/02/2021 DTAP-IPV, <7Y (QUADRACEL/KINRIX) 05/29/2010 DTaP/HepB/IPV 01/04/2006,2005,2005 HEPA 02/13/2014 HIB (PRP-T) 2005,2005 Hepatitis A (Vaqta/Havrix)(P eds 12m-18y) 06/10/2006 Influenza (IIV3) PF 07/04/2013,09/01/2011,2010 Influenza Vaccine >6 months,quad, PF ,07/12/2019,07/25/2018,06/24,08/19/2015 Influenza Vaccine, 6+MO IM (QUADRIVALENT W/PRESERVATIVES) 08/21/2014 MMR (MMRII) 05/29/2010,06/01/2006 Meningococcal ACWY (Menactra ) 02/26/2017 Pneumococcal (PCV 7) 01/04/2006,2005,07/21 TDAP Vaccine (Adacel) 02/26/2017 Varicella (Varivax) 05/29/2010,06/01/2006 Family History Medical History Relation Comments Unknown/Adopted Father Unknown/Adopted Maternal Grandfather Unknown/Adopted Maternal Grandmother Unknown/Adopted Mother Unknown/Adopted Paternal Grandfather Unknown/Adopted Paternal Grandmother Family History Negative No family hx of Relation Status Comments Father Maternal Grandfather Maternal Grandmother Mother Paternal Grandfather Paternal Grandmother Social History Tobacco Use Types Packs/Day Years Used Date Smoking Tobacco: Passive Smo ke Exposure - Never Smoker Smokeless Tobacco: Never Comments:In the vehicle Alcohol Use Standard Drinks/Week Comments No 0 (1 standard drink = 0.6 oz pur e alcohol) Adolescent Education Answer Date Record ed Getting School Help Needed Not on file 07/20 Sex and Gender Information Value Date Recorded Sex Assigned at Not on file Legal Sex Male 4:40 AM VICE PRESIDENT PROCESS Gender Identity Not on file Sexual Orientation Not on file Last Filed Vital Signs Vital Sign Reading Time Taken Comments Blood Pressure 133/99 11/13/2020 1:20 PM VICE PRESIDENT PROCESS Pulse 84 11/13/2020 1:20 PM VICE PRESIDENT PROCESS Temperature 37.1 C (98.8 F) 10/30/2020 11:28 AM VICE PRESIDENT PROCESS Respiratory Rate 16 10/30/2020 11:2 8 AM VICE PRESIDENT PROCESS Oxygen Saturation 100% 10/30/2020 9:11 AM VICE PRESIDENT PROCESS Inhaled Oxygen Concentration - - Weight 40.1 kg (88 lb 6.5 oz) 11/13/2020 1:20 PM VICE PRESIDENT PROCESS 10/29 Height 149.9 cm (4' 11.02) 11/13/2020 1:[address] 10/29 Body Mass Index 17.85 11/13/2020 1:20 PM VICE PRESIDENT PROCESS Body Mass Index Percentile 14.81% 11/13/2020 1:2 0 PM VICE PRESIDENT PROCESS Growth Chart: [facility] (Boys, 2-2 0 Years) Plan of Treatment Not on file Insurance [place] * Guarantor: JORDAN VASQUEZ Account Type Relation to Patient Date of Phone Billing Address Personal/Family Father 1987 [address] [place] [address] [place] Advance Directives For more information, please contact: [phone] * Full Code (Latest Code Status on File) Date Activated Date Inactivated Comments 10/30/2020 6:06 AM 10/30/2020 4:24 PM All basic an d advanced life-sustaining interventions are performed as appropriate Question Answer Comments Code status determined by: Discussion with patie nt/ legal decision maker Care Teams Hand Cementer Relationship Specialty Start Date End Date Alice Green MD [facility] [address] [place] [address] PCP - General Family Medicine 11/27/22 Hannah Lares MD [address] [address] Orthopedics 11/23/13 Ashley Morocho MD [address] [address] Physical Medicine & Rehabilitation, Pediatric 11/23/13 Alok Duenas MD [address] [address] Specialty Provider Neurological Surgery 11/23/13 Leonel Ceja MD [address] [address] Specialty Provider Neurology 11/23/13 Kingsley Gay MD [facility] [address] [place] [address] [place] [address] Specialty Provider Ophthalmology 11/23/13 Charly Cruz MD [address] [address] Consulting Physician Pediatrics 11/23/13 Syed Ireland MD [address] [address] Specialty Provider Pediatric Surgery 11/23/13
[2025-03-11 19:57] VITALS: BP 180/127; PULSE 80; RESP 20; TEMP 36.4; O2SAT 99
--- NOTE | 2025-03-11 20:23 | ED.GENADULT ---
HPI - General Adult General Date Seen: 03/11/25 Chief complaint: Unspecified Complaint, Adult Stated complaint: G-tube popped out Time Seen by Provider: 03/11/25 20:00 History of Present Illness HPI narrative: 19-year-old male who is a nursing home resident. He has chronic G-tube for meds and feeds due to developmental delay and swallowing difficulty. It sounds like his G-tube was placed by doctors at [facility] sometime ago. He has not had any recent new G-tube surgical procedures. His G-tube is changed periodically as it starts to wear out. He is brought to the ER tonight by his nursing home staff. She believes he probably had his G-tube replaced most recently a few weeks ago. Tonight when she was doing his 7:00 p.m. meds when she tried to unhook the syringe from administering the meds the G-tube is fell out of the abdomen. It looks like the balloon, which should have been inflated with 10 mL of water, had largely been deflated. There is perhaps 2 or 3 mL of water left in the balloon. This allowed the G-tube to easily displaced. The G-tube was displaced shortly after 7:00 p.m. and his nursing home staff from straight here to the ER. He has not had any bleeding or drainage. There is no redness around the G-tube site. No other apparent pain. His staff member knows that the G-tube needs to be promptly replaced so she brought him right in. Related Data Home Medications ?Medication ?Instructions ?Recorded ?Confirmed bisacodyl 10 mg rectal suppository 10 mg ND DAILY PRN constipation 03/11/25 03/11/25 (OneLAX Bisacodyl) calcium carbonate (Antacid 200 mg PO QPM 03/11/25 03/11/25 (calcium carbonate)) clindamycin phosphate 1 % lotion topical BID 03/11/25 clobazam 10 mg tablet mg PO 03/11/25 diazepam 5 mg/mL oral concentrate mg 03/11/25 (Diazepam Intensol) levetiracetam 100 mg/mL oral 900 mg 3XD 03/11/25 solution loratadine 5 mg/5 mL oral solution 10 ml PO DAILY 03/11/25 03/11/25 lorazepam 1 mg tablet mg PO 03/11/25 multivitamin with folic acid 400 1 tab PO DAILY 03/11/25 03/11/25 mcg tablet (Tab-A-Guillaume) polyethylene glycol 3350 17 17 g DAILY 03/11/25 gram/dose oral powder (Gavilax) pyridoxine (vitamin B6) 100 mg mg PO DAILY 03/11/25 tablet salicylic acid 17 % topical liquid topical DAILY 03/11/25 (Wart Remover) sennosides 8.8 mg/5 mL oral syrup 10 ml QPM 03/11/25 (senna) Allergies Allergy/AdvReac Type Severity Reaction Status Date / Time No Known Drug Allergies Allergy Verified 03/11/25 20:20 Exam Narrative: Exam Narrative: Constitutional: Appears well-developed and well-nourished. Awake. He is verbal and speaking short words to his nursing home staff who understands and better than I do. He is anxious to go home and says, ?wee which means that he wants to go for a car ride. HENT: Head: Atraumatic. He does have scars on his scalp from previous surgeries. Nose: Nose normal. Mouth/Throat: Oral mucosa is clear and moist. no trismus. Eyes: Conjunctivae normal. EOM normal. Pupils equal, round, and reactive to light. No scleral icterus. Neck: Normal range of motion. Neck supple. No tracheal deviation present. Cardiovascular: Normal rate, regular rhythm.. Normal capillary refill. Skin is pink, warm, dry, well perfused. Pulmonary/Chest: Effort normal. No stridor. No respiratory distress. Abdominal: Soft. Bowel sounds normal. No distension. No mass. No tenderness. No rebound. No guarding. There is a G-tube site in the right upper mid abdomen. Skin around the G-tube site looks good. No bleeding. No redness. No signs of infection. Musculoskeletal: RUE: Normal range of motion. No tenderness. No deformity LUE: Normal range of motion. No tenderness. No deformity RLE: Normal range of motion. No edema. No tenderness. No deformity LLE: Normal range of motion. No edema. No tenderness. No deformity Neurological: Alert and is at his neurologic baseline. Wheelchair-bound. Moves both upper extremities purposefully. When I am talking to him he hold his hands apart indicating that he wants me to give him a hug. Normal strength. CN II-VII intact. No sensory deficit. GCS eye subscore is 4. GCS verbal subscore is 5. GCS motor subscore is 6. Normal coordination Skin: Skin is warm and dry. No rash noted. No pallor. Normal capillary refill. Psychiatric: Normal mood. Mildly anxious and apprehensive a G-tube replacement but easily reassured by his nursing home staff. Const: Vital Signs, click to edit/add: Vital Signs - 24 hr 03/11/25 19:57 Temperature 97.6 F Pulse Rate [Pulse Oximeter] 80 Respiratory Rate 20 Blood Pressure [Ri ght Upper Arm] 180/127 H Pulse Oximetry 99 Oxygen Delivery Me thod Room Air Course Course ED Course: Patient seen and examined ER room 3. His nursing home staff had brought with him a replacement gastric tube. It is a 14 [place] laila pillai. Procedure: G-tube replacement Indication : displacement of previous G-tube due to deflation of the balloon Verbal consent obtained from nursing home staff Skin of the abdominal wall around the G-tube stoma was prepped with Betadine. After sterile lubrication of the knee clean new 14 [place] LAILA-PILLAI with JEANA krishna I gently advanced the Ronald through the G-tube stoma. I encountered no resistance and the G-tube was advanced until the hub was at the skin. I gently inflated the G-tube balloon with 10 mL of sterile saline. No resistance was encountered. No patient discomfort was noted. Subsequently I was able to labor crew supervisor the new G-tube to tubing and I was able to aspirate gastric contents. No bleeding. Patient tolerated the procedure well. No complications noted. Vital Signs Vital signs: Initial Vital Signs Temperature 97.6 F 03/11/25 19:57 Temperature Source Temporal Artery Scan 03/11/25 19:57 Pulse Rate 80 03/11/25 19:57 Respiratory Rate 20 03/11/25 19:57 Blood Pressure 180/127 H 03/11/25 19:57 Blood Pressure Mean 144 H 03/11/25 19:57 Pulse Oximetry 99 03/11/25 19:57 Oxygen Delivery Method Room Air 03/11/25 19:57 Vital Signs Temperature 97.6 F 03/11/25 19:57 Pulse Rate 80 03/11/25 19:57 Respiratory Rate 20 03/11/25 19:57 Blood Pressure 180/127 H 03/11/25 19:57 Pulse Oximetry 99 03/11/25 19:57 Oxygen Delivery Method Room Air 03/11/25 19:57 Temperature 97.6 F 03/11/25 19:57 Pulse Rate 80 03/11/25 19:57 Respiratory Rate 20 03/11/25 19:57 Blood Pressure 180/127 H 03/11/25 19:57 Pulse Oximetry 99 03/11/25 19:57 Oxygen Delivery Method Room Air 03/11/25 19:57 Medical Decision Making MDM Narrative Medical decision making narrative: 19-year-old male from a nursing home resident with chronic G-tube in place for meds and feeds presented to the ER today with his nursing home staff after his gastric tube became displaced from his stomach. It looks like the balloon was already mostly deflated before the tube fell out. On exam I do not see any sign of cellulitis around the G-tube site. No bleeding from the G-tube site. No abdominal pain or signs of peritonitis such as a gastric acid leak into the peritoneal cavity. We were able to easily replace the G-tube back into the stomach. We confirmed placement by aspiration of gastric contents. The patient tolerated the procedure well with no discomfort. The patient does take some liquid by mouth and was able to drink water after the procedure without difficulty. Discussed G-tube care and precautions for return to the ER with the patient's nursing home staff member. Written instructions and precautions for return to the ER reviewed. Discharge Plan Discharge Clinical Impression: Gastrostomy tube dysfunction Patient Disposition: Home w/ Parent or Adult Condition: Stable Instructions: How to Use and Care for Your PEG Tube (DC) Additional Instructions: As we discussed, is okay to resume his normal feeds and meds through the G-tube. Monitor carefully. If he notice any trouble such as abdominal pain, fever, vomiting, nausea, redness of the skin around the G-tube or any bleeding around the G-tube, please bring him back to the ER or recheck with his regular doctor immediately. Prescriptions: No Action loratadine 5 mg/5 mL solution 10 ml PO DAILY sennosides [senna] 8.8 mg/5 mL syrup 10 ml QPM Wart Remover 17 % liquid topical DAILY bisacodyl [OneLAX Bisacodyl] 10 mg suppository 10 mg ND DAILY PRN (Reason: constipation) calcium carbonate [Antacid (calcium carbonate)] 200 mg calcium (500 mg) tablet,chewable 200 mg PO QPM diazepam [Diazepam Intensol] 5 mg/mL concentrate Patient Comments: GIVE 1ML (5MG) BY MOUTH ONCE DAILY IF NEEDED FOR SEIZURES. GIVE 1ML NEEDED FOR SEIZURE ACTIVITY LASTING >10 MINUTES pyridoxine (vitamin B6) 100 mg tablet PO DAILY lorazepam 1 mg tablet PO polyethylene glycol 3350 [Gavilax] 17 gram/dose powder 17 g DAILY clindamycin phosphate 1 % lotion topical BID levetiracetam 100 mg/mL solution 900 mg 3XD clobazam 10 mg tablet PO multivitamin with folic acid [Tab-A-Guillaume] 400 mcg tablet 1 tab PO DAILY Follow Up/Referrals: Alice Green MD [Primary Care Provider, Family Practice] Stand [facility]: [facility] Instructions
== END 2025-03-11 21:07 | disposition home or self-care (01) ==
PROVIDERS: Emergency Provider Emergency Medicine; PCP Family Medicine
DX: T85.528A Displacement of other gastrointestinal prosthetic devices, implants and grafts, initial encounter (principal)
CPT/HCPCS: 43762; 99282; 99284

== ENCOUNTER 2025-08-17 21:28 | Emergency (ER) | payer MEDICAID, SELFPAY ==
--- OUTSIDE RECORDS SUMMARY | 2011-08-24 04:00 | XMS_ITS | Continuity of Care Document ---
Author Organization [facility] Address [address] [address] [place] [address] Phone Care Team Providers Care Buffet Manager Name Role Phone Hanane MONTALVO, Susan Unavailable Unavaila ble Allergies, Adverse Reactions, Alerts Substance Reaction Status Criticality No Known allergies Medications Medication Instructions Dosage Effective Dates (start - stop) Status Comments Miralax 17 gram/dose Oral Powder take 1 Teaspoon by Oral route 2 times every day 1 Teaspoon - Active Keppra 100 mg/mL Oral Soln take 1.5 ml 2 times every day and 2 ml every night by oral route - Active Procedures Procedure Date Offic/outpt E&m [facility] G8447 Advance Directives Directive Yes / No Effective Date File Name Resuscitation Not Answered N/A N/A Life Support Not Answered N/A N/A Intubation Not Answered N/A N/A Antibiotics Not Answered N/A N/A IV Fluid Support Not Answered N/A N/A Tube Feed Not Answered N/A N/A Other Directive N/A N/A WARNING:The information contained in this section is historical and is provided for information only and does not constitute a legal document or any assurance that the information is still accurate. Please verify the information with the duran of the legal document before using it for clinical purposes. Encounters Encounter Description Practice Location Reason(s) For Visit Diagnoses Date Provider Providers Copied on Encounter Offic/outpt E&m [place], [address] [address], [place], [id number], [place] tel:[phone] Pediatric Clinic Assess nutrition (chief complaint) Failure To Thrive PediatricsFeeding Problem 1 Hanane hebert [address] [facility], [facility] [address], [place], [place], [id number] , [place]. tel: [phone] Referring Provider: Referral Self, USE FOR SELF REFERRALS. Family History Family Member Type Diagnosis Age At Onset First degree family history Problem (finding) No Family history of No history of Colon Polyps First degree family history Problem (finding) No history of Ulcerative Colitis First degree family history Problem (finding) No history of Colon Rectal Cancer First degree family history Problem (finding) No history of Crohn's Payers Payer name Insurance type Covered democrat ID Darby olvera(s) [place] Medical Assistance [id number] Social History Type Description Quantity Date Captured Comments Alcohol Use Details Unknown Caffeine Use Details Unknown Tobacco Use Status No Information Smoking Status No Information Sex Male Chief Complaint And Reason For Visit From encounter dated '08/24/2011 10:00'. Assess nutrition (chief complaint) Reason For Referral Reason For Referral No Information History Of Present Illness Encounter Date Complaint History Of Prese nt Illness No Information Functional Status Date Functional Assessmen t No Information Instructions Date Instruction Additional Infor mation No Information Assessments Type Assessment Date No Information Patient Care Teams Name Effective Dates (start - stop) Status Members No Information
[2025-08-17 21:53] VITALS: BP 138/85; PULSE 77; RESP 20; TEMP 36.7; O2SAT 98
--- NOTE | 2025-08-17 22:04 | ED.GENADULT ---
HPI - General Adult General Date Seen: 08/17/25 Chief complaint: Unspecified Complaint, Adult Stated complaint: feeding tube came out Time Seen by Provider: 08/17/25 21:57 History of Present Illness HPI narrative: 19-year-old male who is a shelter resident. He has chronic G-tube for meds and feeds due to developmental delay and swallowing difficulty. It sounds like his G-tube was placed by doctors at [facility] a long time ago. He has not had any recent new G-tube surgical procedures. His G-tube is changed periodically as it starts to wear out. He is brought to the ER tonight by his shelter staff. His staff says his G-tube fell out tonight when they were getting her knee, possibly got caught in some blankets when he was pulling on them. They believe the tube just fell out at about 8 or 9., just prior to coming in. There is perhaps 5 mL of water left in the balloon. He has not had any bleeding or drainage. There is no redness around the G-tube site. No other apparent pain. No apparent pain. His staff member knows that the G-tube needs to be promptly replaced so he brought him directly to the ER Related Data Home Medications ?Medication ?Instructions ?Recorded ?Confirmed bisacodyl 10 mg rectal suppository 10 mg OR DAILY PRN constipation 03/11/25 03/11/25 (OneLAX Bisacodyl) calcium carbonate (Antacid 200 mg PO QPM 03/11/25 03/11/25 (calcium carbonate)) clindamycin phosphate 1 % lotion topical BID 03/11/25 clobazam 10 mg tablet mg PO 03/11/25 diazepam 5 mg/mL oral concentrate mg 03/11/25 (Diazepam Intensol) levetiracetam 100 mg/mL oral 900 mg 3XD 03/11/25 solution loratadine 5 mg/5 mL oral solution 10 ml PO DAILY 03/11/25 03/11/25 lorazepam 1 mg tablet mg PO 03/11/25 multivitamin with folic acid 400 1 tab PO DAILY 03/11/25 03/11/25 mcg tablet (Tab-A-Guillaume) polyethylene glycol 3350 17 17 g DAILY 03/11/25 gram/dose oral powder (Gavilax) pyridoxine (vitamin B6) 100 mg mg PO DAILY 03/11/25 tablet salicylic acid 17 % topical liquid topical DAILY 03/11/25 (Wart Remover) sennosides 8.8 mg/5 mL oral syrup 10 ml QPM 03/11/25 (senna) Allergies Allergy/AdvReac Type Severity Reaction Status Date / Time No Known Drug Allergies Allergy Verified 03/11/25 20:20 PFSH [facility] Social History Smoking Status: Never smoker Do you use any of these nicotine containing products: None Second hand tobacco smoke exposure: No How often do you have a drink containing alcohol: never How often do you have six or more drinks on one occasion: Never AUDIT-C Alcohol total score: 0 Non-prescribed substance use: denies use Exam Narrative: Exam Narrative: Constitutional: Appears well-developed and well-nourished. Awake. He is verbal and speaking short words to his shelter staff who understands and better than I do. He is anxious to go home and says, ?wee which means that he wants to go for a car ride. HENT: Head: Atraumatic. He does have scars on his scalp from previous surgeries. Nose: Nose normal. Mouth/Throat: Oral mucosa is clear and moist. no trismus. Eyes: Conjunctivae normal. EOM normal. Pupils equal, round, and reactive to light. No scleral icterus. Neck: Normal range of motion. Neck supple. No tracheal deviation present. Cardiovascular: Normal rate, regular rhythm.. Normal capillary refill. Skin is pink, warm, dry, well perfused. Pulmonary/Chest: Effort normal. No stridor. No respiratory distress. Abdominal: Soft. Bowel sounds normal. No distension. No mass. No tenderness. No rebound. No guarding. There is a G-tube site in the right upper mid abdomen. Skin around the G-tube site looks good. No bleeding. No redness. No signs of infection. No drainage Musculoskeletal: RUE: Normal range of motion. No tenderness. No deformity LUE: Normal range of motion. No tenderness. No deformity RLE: Normal range of motion. No edema. No tenderness. No deformity LLE: Normal range of motion. No edema. No tenderness. No deformity Neurological: Alert and is at his neurologic baseline. Wheelchair-bound. Moves both upper extremities purposefully. He seconds me to move closer so he can shake my hand as I enter the room. When I am talking to him he hold his hands apart indicating that he wants me to give him a hug. Normal strength. CN II-VII intact. No sensory deficit. GCS eye subscore is 4. GCS verbal subscore is 5. GCS motor subscore is 6. Normal coordination Skin: Skin is warm and dry. No rash noted. No pallor. Normal capillary refill. Psychiatric: Normal mood. Mildly anxious and apprehensive a G-tube replacement but easily reassured by his shelter staff. Const: Vital Signs, click to edit/add: Vital Signs - 24 hr 08/17/25 21:53 Temperature 98.0 F Pulse Rate [Right Pulse Oximeter] 77 Respiratory Rate 20 Blood Pressure [Ri ght Upper Arm] 138/85 Pulse Oximetry 98 Oxygen Delivery Me thod Room Air Course Course ED Course: Procedure: G-tube replacement Indication : displacement of previous G-tube due to deflation of the balloon Verbal consent obtained from shelter staff Skin of the abdominal wall around the G-tube stoma was prepped with Betadine. After sterile lubrication of the knee clean new 14 [place] THIERRY-PILLAI with KY jelly I gently advanced the Ronald through the G-tube stoma. I encountered no resistance and the G-tube was advanced until the hub was at the skin. I gently inflated the G-tube balloon with 10 mL of sterile saline. No resistance was encountered. No patient discomfort was noted. Subsequently I was able to aircraft maintenance supervisor the new G-tube to tubing and I was able to aspirate gastric contents. No bleeding. No discomfort noted Patient tolerated the procedure well. No complications noted. Vital Signs Vital signs: Initial Vital Signs Temperature 98.0 F 08/17/25 21:53 Temperature Source Temporal Artery Scan 08/17/25 21:53 Pulse Rate 77 08/17/25 21:53 Respiratory Rate 20 08/17/25 21:53 Blood Pressure 138/85 08/17/25 21:53 Blood Pressure Mean 102 08/17/25 21:53 Blood Pressure Position Supine 08/17/25 21:53 Pulse Oximetry 98 08/17/25 21:53 Oxygen Delivery Method Room Air 08/17/25 21:53 Vital Signs Temperature 98.0 F 08/17/25 21:53 Pulse Rate 77 08/17/25 21:53 Respiratory Rate 20 08/17/25 21:53 Blood Pressure 138/85 08/17/25 21:53 Pulse Oximetry 98 08/17/25 21:53 Oxygen Delivery Method Room Air 08/17/25 21:53 Temperature 98.0 F 08/17/25 21:53 Pulse Rate 77 08/17/25 21:53 Respiratory Rate 20 08/17/25 21:53 Blood Pressure 138/85 08/17/25 21:53 Pulse Oximetry 98 08/17/25 21:53 Oxygen Delivery Method Room Air 08/17/25 21:53 Medical Decision Making MDM Narrative Medical decision making narrative: 19-year-old male from a shelter resident with chronic G-tube in place for meds and feeds presented to the ER today with his shelter staff after his gastric tube became displaced from his stomach. It looks like the balloon was partly deflated before the tube fell out. On exam I do not see any sign of cellulitis around the G-tube site. No bleeding from the G-tube site. No abdominal pain or signs of peritonitis such as a gastric acid leak into the peritoneal cavity. We were able to easily replace the G-tube back into the stomach. We confirmed placement by aspiration of gastric contents. The patient tolerated the procedure well with no discomfort. Discussed G-tube care and precautions for return to the ER with the patient's shelter staff member. Written instructions and precautions for return to the ER reviewed. Discharge Plan Discharge Clinical Impression: Gastrostomy tube dysfunction Patient Disposition: Home, Self-Care Instructions: How to Use and Care for Your PEG Tube (DC) Additional Instructions: As we discussed, please bring him back to the ER right away if you have any concerns. Especially bring him back right away if his 2 falls out or if you notice bleeding or swelling around the tube, abdominal pain, vomiting, fever. It is okay to continue his normal tube feedings and other medications through his G-tube. Prescriptions: No Action loratadine 5 mg/5 mL solution 10 ml PO DAILY sennosides [senna] 8.8 mg/5 mL syrup 10 ml QPM Wart Remover 17 % liquid topical DAILY bisacodyl [OneLAX Bisacodyl] 10 mg suppository 10 mg OR DAILY PRN (Reason: constipation) calcium carbonate [Antacid (calcium carbonate)] 200 mg calcium (500 mg) tablet,chewable 200 mg PO QPM diazepam [Diazepam Intensol] 5 mg/mL concentrate Patient Comments: GIVE 1ML (5MG) BY MOUTH ONCE DAILY IF NEEDED FOR SEIZURES. GIVE 1ML NEEDED FOR SEIZURE ACTIVITY LASTING >10 MINUTES pyridoxine (vitamin B6) 100 mg tablet PO DAILY lorazepam 1 mg tablet PO polyethylene glycol 3350 [Gavilax] 17 gram/dose powder 17 g DAILY clindamycin phosphate 1 % lotion topical BID levetiracetam 100 mg/mL solution 900 mg 3XD clobazam 10 mg tablet PO multivitamin with folic acid [Tab-A-Guillaume] 400 mcg tablet 1 tab PO DAILY Follow Up/Referrals: Alice Green MD [Primary Care Provider, Family Practice] Stand Alone Forms: [employer] Info Instructions
--- OUTSIDE RECORDS SUMMARY | 2025-08-17 22:25 | XMS_ITS | Encounter Summary ---
Author Organization [facility] Address [address] [facility] [address] Care Team Providers Care Senior Software Test Engineer Name Role Phone Merle Temple MD Primary Care Provider Unavailable Hannah Lares MD Unavailable [phone] Ashley Morocho MD Unavailable Alok Duenas MD Unavailable Leonel Ceja MD Unavailable [phone] Kingsley Gay MD Unavailable [phone] Charly Cruz MD Unavailable [phone] Syed Ireland MD Unavailable [phone] Merle Temple MD Unavailable Unava ilAlice Trammell MD Primary Care Provider Merle Temple MD Unavailable Unava ilable [facility] Unavailabl e Reason for Visit * Reason Comments Medication Refill Encounter Details Date Type Department Care Team (Late st Contact Info) Description 06/22/2022 Refill [facility] [address] [place] [address] Merle Temple MD Medication Refill Social History Tobacco Use Types Packs/Day Years Used Date Smoking Tobacco: Passive Smo ke Exposure - Never Smoker Smokeless Tobacco: Never Comments:In the vehicle Alcohol Use Standard Drinks/Week Comments No 0 (1 standard drink = 0.6 oz pur e alcohol) Sex and Gender Information Value Date Recorded Sex Assigned at Not on file 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 Gender Identity Not on file Sexual Orientation [...] constipation documented in this encounter Care Teams Senior Software Test Engineer Relationship Specialty Start Date End Date Merle Temple MD PCP - General Pediatrics 09/09/12 11/26/22 Alice Green MD [address] [address] PCP - General Family Medicine 11/27/22 Hannah Lares MD [address] [address] Orthopedics 11/23/13 Ashley Morocho MD [address] [address] Physical Medicine & Rehabilitation, Pediatric 11/23/13 Alok Duenas MD [address] [place] [address] Specialty Provider Neurological Surgery 11/23/13 Leonel Ceja MD [address] [address] Specialty Provider Neurology 11/23/13 Kingsley Gay MD [facility] [address] [address] Specialty Provider Ophthalmology 11/23/13 Charly Cruz MD [address] [address] Consulting Physician Pediatrics 11/23/13 Syed Ireland MD [address] [address] Specialty Provider Pediatric Surgery 11/23/13 Merle Temple MD Assigned PCP 08/12/12 09/18/22 Merle Temple MD Assigned PCP 11/28/22 10/27/23 [facility] [address] [facility] [place] [address] Assigned PCP 10/28/23 11/25/23 documented as of this encounter
--- OUTSIDE RECORDS SUMMARY | 2025-08-17 22:26 | XMS_ITS | Encounter Summary ---
Author Organization [facility] Address [address] [facility] [place] [address] Care Team Providers Care Nurse Practitioner Home Assessments Name Role Phone Merle Temple MD Primary Care Provider Unavailable Hannah Lares MD Unavailable Ashley Morocho MD Unavailable [phone] Alok Duenas MD Unavailable Leonel Ceja MD Unavailable [phone] Kingsley Gay MD Unavailable Charly Cruz MD Unavailable [phone] Syed Ireland MD Unavailable [phone] Merle Temple MD Unavailable Unava Yariel Garcia MD Unavailable Alice Green MD Primary Care Provider [phone] Merle Temple MD Unavailable Unava ilaaliyah [facility] Unavailabl e Reason for Visit * Reason Comments Medication Refill Encounter Details Date Type Department Care Team (Late st Contact Info) Description 08/22/2020 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 No / Unsure 08/14/2020 1:15 PM PULLING MACHINE OPERATOR documented as of this encounter Miscellaneous Notes * Telephone Encounter - Merle Temple MD - 08/22/2020 4:40 PM PULLING MACHINE OPERATOR Letter to be printed and faxed to [facility]. Fax ING MACHINE OPERATOR * Telephone Encounter - Shanique Allen RN - 08/22/2020 4:24 PM CST Message from pharmacy: To pharmacy: [facility] NEEDS A NEW RX THAT STATES THAT THIS IS TO BE USED NEEDED ONLY NOW. THEYDO NOT NEED ANY MORE MEDICATION AT THIS TIME HOWEVER THEY DO NEED UPDATED DIRECTIONS Shanique Allen RN ING MACHINE OPERATOR documented in this encounter Plan [...] of 10/21/20. 10/11/2020 10/11/2020 10/29/2020 10:42 AM PULLING MACHINE OPERATOR Recovered COVID Comment:Asymptomatic positive 10/11/20. Utilizing 75 day recovery window (vs 90) since exact onset is unknown. 10/11/2020 10/29/2020 12/24/2020 11:39 PM CDT documented as of this encounter Care Teams Nurse Practitioner Home Assessments Relationship Specialty Start Date End Date Merle Temple MD PCP - General Pediatrics 09/09/12 11/26/22 Alice Green MD [address] [address] PCP - General Family Medicine 11/27/22 Hannah Lares MD [address] [address] Orthopedics 11/23/13 Ashley Morocho MD [address] [address] Physical Medicine & Rehabilitation, Pediatric 11/23/13 Alok Duenas MD [address] [address] Specialty Provider Neurological Surgery 11/23/13 Leonel Ceja MD [address] [address] Specialty Provider Neurology 11/23/13 Kingsley Gay MD [facility] [address] [facility] [address] [facility] [place] [address] Specialty Provider Ophthalmology 11/23/13 Charly Cruz MD [address] [address] Consulting Physician Pediatrics 11/23/13 Syed Ireland MD [address] [address] Specialty Provider Pediatric Surgery 11/23/13 Merle Temple MD Assigned PCP 08/12/12 09/18/22 Yariel Lagos MD [address] [address] Assigned Pediatric Specialist Provider 08/18/20 05/15/22 Merle Temple MD Assigned PCP 11/28/22 10/27/23 [facility] [address] [facility] [place] [address] Assigned PCP 10/28/23 11/25/23 documented as of this encounter
--- OUTSIDE RECORDS SUMMARY | 2025-08-17 22:27 | XMS_ITS | Patient Health Record ---
Author Organization [facility] Address [address] [facility] [address] [place] [address] Care Team Providers Care Labor Employment Associate Name Role Phone Merle Dominguez MD Primary Care Provider Reason For Referral No Information Social History Social History PSA Social History Social Info Question Answer Notes SMOKING STATUS 13Y AND OLDER Are you a: Non-Smoker Education: Is the Child in School? Yes What Grade? 7th Additional Details Category Social Info Options Details PSA Social History Child Lives At: Home Child Lives With: Mother,Other Day Care No Siblings 3 Alcohol/Drugs? No Activities / Interests? baseball , running, biking, video games, reading, youth group, outdoors Others Residing In Home: All Mem bers: Mom, Step Dad, Brother, Sister, Step Sister Employment No Recent Travel no Problems Problem Type SNOMED Code ICD Code Onset Dates Problem Status W/U Status Risk Notes Problem Neurogenic bladder (202328544) Neurogenic bladder (N31.9) Active confirmed Plan Of Treatment No Information
--- OUTSIDE RECORDS SUMMARY | 2025-08-17 22:27 | XMS_ITS | Clinical Summary ---
Author Organization [facility] Address [address] [place] [address] Care Team Providers Care Supervisor Small Appliance Assembly Name Role Phone Hannah Lares MD Unavailable [phone] Ashley Morocho MD Unavailable Alok Duenas MD Unavailable Leonel Ceja MD Unavailable [phone] Kingsley Gay MD Unavailable [phone] Charly Cruz MD Unavailable Syed Ireland MD Unavailable Alice Green MD Primary Care Provider Allergies Active Allergy Reactions Criticality Noted Date Comments Latex 10/15/2015 No allergy per [facility] staff - Precaution not allergy Medications pyridoxine (VITAMIN B-6) 100 MG tablet 1 tablet (100 mg) by Per G Tube route daily 0 02/27/20 17 Active order for DMEIndications:Gas trostomy tube dependent (H) Equipment being ordered: 2 X 2 inc gauze (pre-slit) for use around GTube/ Barry-rodriguez site as needed for skin irritation fax a written order to [facility] at [phone]. [address] 11/26/19 18 Active glycopyrrolate [...] 017 Overview (12/11/2019): Last seen 07/21, 11/30/19 [place]- cleaning, fluoride and xray; f/u 6 mos [...] baclofen pump 05/02/2014 Overview (08/03/2014): Placed 04/23/14; [employer] SynchroMed II pump. Serial # [id number], Model # [id number]- 20. 20 ml. Filled with 500mcg/ml, catheter volume 0.187 ml. 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 Tate; Head [facility]; Dr. Duenas 07/16- CT Scan @ [facility]: changes with PVL. Marked dilatation 4th ventricle; 2nd shunt into 4th ventricle- connected to exisiting shunt 11/10/13; CT scan 01/15-enlargement lateral ventricles, 4th ventricle stable in size; repeat 02/06/14 stable- change pressure to 40; Repeat 03/06/14- ventricles same; 4th vent catheter tip in brainstem 07/[address]- no significant change. Neurosurgery Dr. Duenas [facility] (status) 02/13/2013 Overview (09/25/2020): 01/14- [facility] in ; Fax 08/23- changing guardian from mother to father Premature infant-24 weeks gestation 09/08/2012 Overview (09/08/2012): BW 1# [...] daily 04/27/19- 04/28/19 Admit after transfer from [facility] ED with increase, prolonged seizure- febrile; neurosurgery [...] on file Legal Sex Male 4:40 AM SITE TECHNICIAN Gender Identity Not on file Sexual Orientation Not on file Last Filed Vital Signs Vital Sign Reading Time Taken Comments Blood Pressure 133/99 11/13/2020 1:20 PM SITE TECHNICIAN Pulse 84 11/13/2020 1:20 PM SITE TECHNICIAN Temperature 37.1 C (98.8 F) 10/30/2020 11:28 AM SITE TECHNICIAN Respiratory Rate 16 10/30/2020 11:28 AM SITE TECHNICIAN Oxygen Saturation 100% 10/30/2020 9:11 AM SITE TECHNICIAN Inhaled Oxygen Concentration - - Weight 40.1 kg (88 lb 6.5 oz) 11/13/2020 1:20 PM SITE TECHNICIAN 10/29 Height 149.9 cm (4' 11.02) 11/13/2020 1:[address] 10/29 Body Mass Index 17.85 11/13/2020 1:20 PM SITE TECHNICIAN Plan of Treatment Not on file [place] Advance Directives For more information, please contact: [phone] * Full Code (Latest Code Status on File) Date Activated Date Inactivated Comments 10/30/2020 6:06 AM 10/30/2020 4:24 PM All basic an d advanced life-sustaining interventions are performed as appropriate Question Answer Comments Code status determined by: Discussion with patie nt/ legal decision maker Care Teams Supervisor Small Appliance Assembly Relationship Specialty Start Date End Date Alice Green MD [facility] [address] [place] [address] PCP - General Family Medicine 11/27/22 Hannah Lares MD [address] [address] Orthopedics 11/23/13 Ashley Morocho MD [address] [address] Physical Medicine & Rehabilitation, Pediatric 11/23/13 lAok Duenas MD [address] [address] Specialty Provider Neurological Surgery 11/23/13 Leonel Ceja MD [address] [address] Specialty Provider Neurology 11/23/13 Kingsley Gay MD [facility] [address] [facility] [address] [address] Specialty Provider Ophthalmology 11/23/13 Charly Cruz MD [address] [address] Consulting Physician Pediatrics 11/23/13 Syed Ireland MD [address] [address] Specialty Provider Pediatric Surgery 11/23/13
== END 2025-08-17 23:02 | disposition home or self-care (01) ==
PROVIDERS: Emergency Provider Emergency Medicine; PCP Family Medicine
DX: K94.23 Gastrostomy malfunction (principal)
CPT/HCPCS: 43762; 99282; 99283

== ENCOUNTER 2025-08-29 09:06 | Outpatient (CLI) | payer MEDICAID, SELFPAY ==
--- NOTE | 2025-08-29 09:15 | CRLHL7_ITS ---
For Patients: As a result of the Century Cures Act, medical imaging exams and procedure reports are released immediately into your electronic medical record. You may view this report before your referring provider. If you have questions, please contact your health care provider. CLINICAL HISTORY: neurogenic bladder COMPARISON: none TECHNIQUE: Sams scale and color Doppler images were acquired of the kidneys and urinary bladder. FINDINGS: Sonographic images reveal a symmetric appearance of the kidneys. There is no evidence of hydronephrosis, mass or calculus. The right kidney measures 9.6cm in length and the left kidney measures 9.2cm in length. The renal cortex appears of normal thickness. The urinary bladder appears normal. Color Doppler images reveal a normal appearance of both ureteral jets. There is no evidence of bladder calculi or diverticula. Prevoid bladder volume 245 cc. IMPRESSION: Normal renal ultrasound. Dictated by Faustino Kohli MD @ 08/30/2025 6:01:47 PM (Electronically Signed)
== END 2025-08-29 09:07 | disposition home or self-care (01) ==
LOC: US 09:07
PROVIDERS: PCP Family Medicine; Visit Provider Nurse Practitioner
DX: N31.9 Neuromuscular dysfunction of bladder, unspecified (principal)
CPT/HCPCS: 76770

== ENCOUNTER 2025-09-14 11:20 | Outpatient (CLI) | payer MEDICAID, SELFPAY | END 2025-09-14 11:21 | disposition home or self-care (01) | LOC: LAB 09-19 11:43 | PROVIDERS: PCP Family Medicine; Visit Provider Psychiatry & Neurology Sleep Medicine | DX: G40.909 Epilepsy, unspecified, not intractable, without status epilepticus (principal) | CPT/HCPCS: 80339 ==